=== PATIENT | male | born 1990 | race Caucasian/White ===

== ENCOUNTER 2018-07-29 19:56 | Emergency (ER) | payer SELFPAY ==
--- NOTE | 2018-07-29 20:00 | ER Report ---
History and Physical Time Seen By MD: 19:57 HPI/ROS CHIEF COMPLAINT: Attempted hanging HISTORY OF PRESENT ILLNESS: 27-year-old inmate [facility]. Patient's in correctional facility for attempted murder. Patient was found hanging himself by a bedsheet. Patient has petechiae to eyelids bilaterally. Patient's vital signs are stable. Patient has normal pulse ox. He is in no acute respiratory distress. REVIEW OF SYSTEMS: Respiratory: No cough, no dyspnea. Cardiovascular: No chest pain, no palpitations. Gastrointestinal: No vomiting, no abdominal pain. Musculoskeletal: No back pain. Allergies: Coded Allergies: No Known Drug Allergies (Unverified , 07/29/18) Home Meds Reported Medications Fluoxetine Hcl (PROZAC) 40 Mg Capsule, 60 MG PO QDAY, CAPSULE 07/29/18 Quetiapine Fumarate (SEROQUEL) 100 Mg Tablet, 100 MG PO 07/29/18 Past Medical/Surgical History Unremarkable Reviewed Nurses Notes: Yes Old Medical Records Reviewed: Yes Constitutional Vital Sign - Last 24 Hours 07/29/18 07/29/18 07/29/18 07/29/18 19:57 19:59 20:00 20:15 Temp 98.6 Pulse 84 Resp 18 B/P (MAP) 122/89 (100) 131/90 131/90 (104) 128/61 (83) Pulse Ox 97 O2 Delivery Room Air 07/29/18 07/29/18 07/29/18 07/29/18 20:26 20:30 20:45 21:00 Pulse 82 Resp 15 B/P (MAP) 122/68 (86) 119/79 (92) 118/68 (85) Pulse Ox 97 07/29/18 07/29/18 07/29/18 07/29/18 21:15 21:20 21:25 21:30 Pulse 77 77 Resp 22 29 B/P (MAP) 124/75 (91) 115/79 (91) Pulse Ox 97 97 07/29/18 07/29/18 07/29/18 07/29/18 21:45 21:55 22:00 22:15 Pulse 79 Resp 15 B/P (MAP) 121/70 (87) 120/69 (86) 116/72 (87) Pulse Ox 97 07/29/18 07/29/18 07/29/18 22:25 22:30 22:45 Pulse 82 Resp 26 B/P (MAP) 108/76 (87) 127/98 (108) Pulse Ox 96 Physical Exam General Appearance: The patient is alert, has no immediate need for airway protection and no current signs of toxicity. Vital signs stable, afebrile, pulse ox normal. Palpation of the head and neck reveal no tenderness or trauma HEENT: Pupils equal and round no injection. There are petechial hemorrhages around both eyes from ruptured capillary vessels. Respiratory: Chest is non tender, lungs are clear to auscultation. No wheezing or rails Cardiac: regular rate and rhythm Gastrointestinal: Abdomen is soft and non tender, no masses, bowel sounds normal. Musculoskeletal: Neck: Neck is supple and non tender. No simpson, no induration of neck tissues, Extremities have full range of motion and are non tender. Skin: No rashes or lesions. DIFFERENTIAL DIAGNOSIS: After history and physical exam differential diagnosis was considered for strangulation Medical Decision Making Data Points Result Diagram: 07/29/18202107/29/182021 Laboratory Hematology Test 07/29/18 20:22 Red Blood Count 4.79 M/uL (4.00-5.60) Mean Corpuscular Volume 89.1 fL (80.0-96.0) Mean Corpuscular Hemoglobin 30.4 pg (26.0-33.0) Mean Corpuscular Hemoglobin Concent 34.1 g/dL (32.0-36.0) Red Cell Distribution Width 13.3 % (11.5-14.5) Mean Platelet Volume 7.7 fL (7.2-11.1) Neutrophils (%) (Auto) 58.2 % (39.4-72.5) Lymphocytes (%) (Auto) 30.8 % (17.6-49.6) Monocytes (%) (Auto) 8.1 % (4.1-12.4) Eosinophils (%) (Auto) 2.3 % (0.4-6.7) Basophils (%) (Auto) 0.6 % (0.3-1.4) Nucleated RBC Relative Count (auto) 0.1 /100WBC Neutrophils # (Auto) 4.1 K/uL (2.0-7.4) Lymphocytes # (Auto) 2.2 K/uL (1.3-3.6) Monocytes # (Auto) 0.6 K/uL (0.3-1.0) Eosinophils # (Auto) 0.2 K/uL (0.0-0.5) Basophils # (Auto) 0.0 K/uL (0.0-0.1) Nucleated RBC Absolute Count (auto) 0.00 K/uL Prothrombin Time 12.8 seconds (12.0-14.4) Prothromb Time International Ratio 0.96 Activated Partial Thromboplast Time 33 seconds (23-35) Sodium Level 138 mmol/L (137-145) Potassium Level 4.2 mmol/L (3.5-5.0) Chloride Level 100 mmol/L (98-107) Carbon Dioxide Level 26 mmol/L (22-30) Blood Urea Nitrogen 14 mg/dl (9-21) Creatinine 1.10 mg/dl (0.66-1.25) Glomerular Filtration Rate Calc > 60.0 Random Glucose 94 mg/dl (75-110) Lactate 0.9 mmol/L (0.7-2.1) Calcium Level 9.3 mg/dl (8.4-10.2) Total Bilirubin 0.4 mg/dl (0.2-1.3) Aspartate Amino Transf (AST/SGOT) 39 U/L (0-35) Alanine Aminotransferase (ALT/SGPT) 78 U/L (0-56) Alkaline Phosphatase 65 U/L (0-126) Total Protein 7.3 g/dl (6.3-8.2) Albumin 4.2 g/dl (3.5-5.0) Chemistry Test 07/29/18 20:22 White Blood Count 7.0 k/uL (4.5-11.0) Red Blood Count 4.79 M/uL (4.00-5.60) Hemoglobin 14.6 g/dL (14.0-18.0) Hematocrit 42.7 % (42.0-52.0) Mean Corpuscular Volume 89.1 fL (80.0-96.0) Mean Corpuscular Hemoglobin 30.4 pg (26.0-33.0) Mean Corpuscular Hemoglobin Concent 34.1 g/dL (32.0-36.0) Red Cell Distribution Width 13.3 % (11.5-14.5) Platelet Count 262 K/uL (150-450) Mean Platelet Volume 7.7 fL (7.2-11.1) Neutrophils (%) (Auto) 58.2 % (39.4-72.5) Lymphocytes (%) (Auto) 30.8 % (17.6-49.6) Monocytes (%) (Auto) 8.1 % (4.1-12.4) Eosinophils (%) (Auto) 2.3 % (0.4-6.7) Basophils (%) (Auto) 0.6 % (0.3-1.4) Nucleated RBC Relative Count (auto) 0.1 /100WBC Neutrophils # (Auto) 4.1 K/uL (2.0-7.4) Lymphocytes # (Auto) 2.2 K/uL (1.3-3.6) Monocytes # (Auto) 0.6 K/uL (0.3-1.0) Eosinophils # (Auto) 0.2 K/uL (0.0-0.5) Basophils # (Auto) 0.0 K/uL (0.0-0.1) Nucleated RBC Absolute Count (auto) 0.00 K/uL Prothrombin Time 12.8 seconds (12.0-14.4) Prothromb Time International Ratio 0.96 Activated Partial Thromboplast Time 33 seconds (23-35) Glomerular Filtration Rate Calc > 60.0 Lactate 0.9 mmol/L (0.7-2.1) Calcium Level 9.3 mg/dl (8.4-10.2) Total Bilirubin 0.4 mg/dl (0.2-1.3) Aspartate Amino Transf (AST/SGOT) 39 U/L (0-35) Alanine Aminotransferase (ALT/SGPT) 78 U/L (0-56) Alkaline Phosphatase 65 U/L (0-126) Total Protein 7.3 g/dl (6.3-8.2) Albumin 4.2 g/dl (3.5-5.0) Coagulation Test 07/29/18 20:22 Prothrombin Time 12.8 seconds Prothromb Time International Ratio 0.96 Activated Partial Thromboplast Time 33 seconds EKG/Imaging Imaging Results: CT scan of the head without contrast was obtained. The results of the study are EXAMINATION: Head CT without intravenous contrast HISTORY: At attempted hanging anterior wall. Hung for approximately 10 minutes. COMPARISON: None. TECHNIQUE: Contiguous axial images were obtained from the skull base to the vertex without intravenous contrast. Sagittal and coronal reformatted images are also submitted. One of the following dose optimization techniques was utilized in the performance of this exam: Automated exposure control; adjustment of the mA and/or kV according to the patient's size; or use of an iterative reconstruction technique. Specific details can be referenced in the facility's radiology CT exam operational policy. FINDINGS: Brain and intracranial structures: Ventricles, sulci, and cisterns are normal in size. [place]ang-white matter differentiation is maintained. No midline shift, acute hemorrhage, acute infarct, or mass. Calvarium / scalp: Negative. No acute fracture. Skull base / visualized face: Negative. Visualized sinuses / orbits: Moderate mucosal thickening in the ethmoid air cells. Mild mucosal thickening in the maxillary sinuses. IMPRESSION: No CT evidence of acute intracranial pathology. The study was read by the radiologist. I viewed the images myself on the PACS system. Results: CT scan of the CTA soft tissue neck and carotids with contrast was obtained. The results of the study are . The study was read by the radiologist. I viewed the images myself on the PACS system. ED Course/Re-evaluation Clinical Indication for ER IV: IV Access ED Course Patient was admitted to an examination room. H&P was done. The differential diagnoses was considered. Patient without obvious distress. His vital signs are stable. His pulse ox is normal. Examination is unremarkable except for petechial hemorrhages around the eyes from increased intracranial pressure, while hanging himself. CT scan of the head and cervical spine with contrast were performed. Studies are unremarkable. Results are discussed with the patient. Diagnostic laboratory studies are unremarkable. Patient's lactate is normal He is medical cleared to [facility] to [facility]. Patient should be on suicide watch. Patient advised ibuprofen and Tylenol as needed for pain relief. Decision to Disposition Date: Jul 29, 2018 Decision to Disposition Time: 22:23 Depart Departure Latest Vital Signs Vital Signs Date Time Temp Pulse Resp B/P (MAP) Pulse Ox O2 Delivery O2 Flow Rate FiO2 07/29/18 22:45 127/98 (108) 07/29/18 22:25 82 26 96 07/29/18 19:59 98.6 Room Air Impression: Primary Impression: Suicide attempt by hanging Additional Impressions: Traumatic petechiae Depression Condition: Improved Disposition: [facility] TO [facility] Patient Instructions: Contusion in Adults (ED), Depression (ED) Additional Instructions: Take ibuprofen and Tylenol as needed for pain relief Problem Qualifiers Primary Impression: Suicide attempt by hanging Encounter type: initial encounter Qualified Codes: T71.162A - Asphyxiation due to hanging, intentional self-harm, initial encounter Additional Impressions: Depression Depression Type: unspecified Qualified Codes: F32.9 - Major depressive disorder, single episode, unspecified CARA TURK DO Jul 29, 2018 20:00
[2018-07-29] MEDS ORDERED: FLUO40CA76 PO (20:10)
[2018-07-29] MEDS ORDERED: QUET100T29 PO (20:10)
[2018-07-29] MEDS: NS(*) 0.9% 1000 ML BAG 1,000 ML IV ONE ×2 (20:10→20:22)
[2018-07-29 20:31] LABS: PLATELET COUNT, AUTOMATED 262 K/uL (150-450)
[2018-07-29 20:41] LABS: INR 0.96
[2018-07-29] MEDS ORDERED: IOPAMIDOL 76% 75 ML INFUS BTL 75 ML ONE (20:44)
[2018-07-29] MEDS ORDERED: NS(*) 0.9% 50 ML BAG 0 ML ONE (20:44)
--- NOTE | 2018-07-29 22:23 | RADIOLOGY IMAGING REPORT ---
FACILITY: [facility] PATIENT NAME: Jayme Mora : 1990 MR: [id number] V: [id number] EXAM DATE: ORDERING PHYSICIAN: CARA TURK TECHNOLOGIST: Location: [facility] [place] Patient: Jayme Mora : 1990 Visit/Account:[id number] Date of Sevice: 07/29/2018 EXAMINATION: Head CT without intravenous contrast HISTORY: At attempted hanging anterior wall. Hung for approximately 10 minutes. COMPARISON: None. TECHNIQUE: Contiguous axial images were obtained from the skull base to the vertex without intraven ous contrast. Sagittal and coronal reformatted images are also submitted. One of the following dose optimization techniques was utilized in the performance of this exam: Autom ated exposure control; adjustment of the mA and/or kV according to the patient's size; or use of an i terative reconstruction technique. Specific details can be referenced in the facility's radiology C T exam operational policy. FINDINGS: Brain and intracranial structures: Ventricles, sulci, and cisterns are normal in size. Dang-white ma tter differentiation is maintained. No midline shift, acute hemorrhage, acute infarct, or mass. Calvarium / scalp: Negative. No acute fracture. Skull base / visualized face: Negative. Visualized sinuses / orbits: Moderate mucosal thickening in the ethmoid air cells. Mild mucosal thic kening in the maxillary sinuses. IMPRESSION: No CT evidence of acute intracranial pathology. Report Dictated By: Edvin Bruce MD at 07/29/2018 10:11 PM Report E-Signed By: Edvin Bruce MD at 07/29/2018 10:19 PM [id number]
--- NOTE | 2018-07-29 22:33 | RADIOLOGY IMAGING REPORT ---
FACILITY: [facility] - [place] PATIENT NAME: Jayme Mora : 1990 MR: [id number] V: [id number] EXAM DATE: ORDERING PHYSICIAN: CARA TURK TECHNOLOGIST: Location: [facility] [place] Patient: Jayme Mora : 1990 Visit/Account:[id number] Date of Sevice: 07/29/2018 EXAMINATION: CTA of the Neck with IV contrast HISTORY: Attempted hanging at shelter. COMPARISON: None. TECHNIQUE: Overlapping thin sections were obtained during a bolus of IV contrast from the aortic ar ch through the [place]. Reconstruction of the source data set includes multiplanar 2D in the sagittal and coronal planes, and 3D coronal thin slab MIP series. [employer] images have been st ored on PACS. Stenosis of the internal carotid arteries are calculated using NASCET criteria. CONTRAST: 75 mL of IV [id number] One of the following dose optimization techniques was utilized in the performance of this exam: Autom ated exposure control; adjustment of the mA and/or kV according to the patient's size; or use of an i terative reconstruction technique. Specific details can be referenced in the facility's radiology C T exam operational policy. FINDINGS: Angiographic findings: Aortic arch and great vessels: Negative. Right CCA/ICA: Negative. 0% stenosis of the origin of the right ICA. Left CCA/ICA: Negative. 0% stenosis of the origin of the left ICA. Vertebrobasilar: Congenitally diminutive left vertebral artery. The left vertebral artery origin as at the aortic arch. The right vertebral artery is patent and normal in caliber. The basilar artery i s patent and normal in caliber. [place] of [place]: Negative. Additional non-angiographic findings: Mild disc degenerative changes at C5-6. No acute fracture or dislocation of the cervical spine. IMPRESSION: No evidence of acute arterial injury in the neck. Report Dictated By: Edvin Bruce MD at 07/29/2018 10:09 PM Report E-Signed By: Edvin Bruce MD at 07/29/2018 10:28 PM WSN:[id number]
[2018-07-29 22:45] VITALS: BP 127/98
== END 2018-07-29 22:45 ==
LOC: ER 20:04
DX: T71.162A Asphyxiation due to hanging, intentional self-harm, initial encounter (principal); F32.9 Major depressive disorder, single episode, unspecified
CPT/HCPCS: 70450; 70498; 83605; 85025; 85610; 85730; 96360; 99284; J7030; Q9967; 82040; 82247; 82310; 82374; 82435; 82565; 82947; 84075; 84132; 84155; 84295; 84450; 84460; 84520; J7050

== ENCOUNTER → 2018-07-29 | Outpatient (CLI) | payer SELFPAY ==
[~2018-07-29] MED LIST: FLUO40CA76 PO; QUET100T29 PO
== END ==
LOC: AMB 19:31
PROVIDERS: ATTEND Nurse Practitioner
DX: T14.91XA Suicide attempt, initial encounter (principal)
CPT/HCPCS: A0425; A0429